=== PATIENT | female | born 1965 | race Caucasian/White ===

== ENCOUNTER → 2021-07-19 | Outpatient (CLI) | payer BC ==
[~2021-07-19] MED LIST: IBUPROFEN400 MG PO; PERCOCET 5-3251 EACH PO; PROTONIX40 MG PO
== END ==
LOC: US 10:45
DX: N63.21 Unspecified lump in the left breast, upper outer quadrant (principal)
CPT/HCPCS: 76641-LT

== ENCOUNTER → 2021-08-16 | Outpatient (CLI) | payer BC, MEDICAID | LOC: ECHO 12:00 | DX: C50.412 Malignant neoplasm of upper-outer quadrant of left female breast (principal) | CPT/HCPCS: ECHO; 93306 ==

== ENCOUNTER 2021-10-19 11:54 | Emergency (ER) | payer BC, OTHER | END 2021-10-19 19:07 | disposition home or self-care (01) | LOC: ER1 11:54 | DX: D64.9 Anemia, unspecified (principal); D69.6 Thrombocytopenia, unspecified; C79.81 Secondary malignant neoplasm of breast | CPT/HCPCS: 36430; 85049; 86900; 86901; 93005; 99285; P9035 ==

== ENCOUNTER → 2021-10-19 | Outpatient (CLI) | payer BC, OTHER ==
[~2021-10-19] VITALS: Ht 152.4 cm; Wt 46.7 kg
[2021-10-19 08:17] LABS: HEMOGLOBIN 9.1 gm/dl (12.3-15.3); RED BLOOD COUNT 2.87 M/UL (4.00-5.10); WHITE BLOOD COUNT 10.8 K/UL (4.5-11.0)
[2021-10-19 08:39] LABS: BUN/CREATININE RATIO 20 (0-10)
== END ==
LOC: OPSV 07:31 → ECHO 09:30
PROVIDERS: Internal Medicine Hematology & Oncology
DX: C50.412 Malignant neoplasm of upper-outer quadrant of left female breast (principal); R63.6 Underweight; Z51.11 Encounter for antineoplastic chemotherapy
CPT/HCPCS: ECHO; 36591; 71046; 80053; 83880; 85025; 93306; J1642

== ENCOUNTER → 2021-11-08 | Outpatient (CLI) | payer BC, OTHER | LOC: LAB 10:49 | DX: Z00.00 Encounter for general adult medical examination without abnormal findings (principal) | CPT/HCPCS: 36415; 80061 ==